=== PATIENT | male | born 1970 | race Caucasian/White ===

== ENCOUNTER 2024-09-02 13:54 | Inpatient (IN) | payer MEDICAID, OTHER ==
[2024-09-02] MEDS ORDERED: MAGNESIUM HYDROXIDE 2,400 MG/30 ML CUP PO PRN (15:10)
[2024-09-02] MEDS ORDERED: LORazepam 1 MG TAB PO PRN ×2 (15:10)
[2024-09-02] MEDS ORDERED: LORazepam 2 MG/ML INJ IM PRN (15:10)
[2024-09-02] MEDS ORDERED: MAG HYDROX/AL HYDROX/SIMETH 355 ML BOTTLE PO PRN (15:10)
[2024-09-02] MEDS ORDERED: IBUPROFEN 600 MG TAB PO PRN (15:10)
[2024-09-02] MEDS ORDERED: ALBUTEROL HFA INHALER INHALATION PRN (17:43)
[2024-09-02] MEDS: ATORVASTATIN 20 MG TAB PO SCH (20:04)
[2024-09-02] MEDS: levETIRAcetam 500 MG TAB PO SCH (20:04)
[2024-09-02] MEDS: QUEtiapine 400 MG TAB PO SCH (20:04)
[2024-09-02] MEDS: GABAPENTIN 300 MG CAP PO SCH (20:04)
[2024-09-02] MEDS: FAMOTIDINE 20 MG TAB PO SCH (20:04)
[2024-09-02] MEDS: RIVAROXABAN 20 MG TAB PO SCH (20:05)
--- NOTE | 2024-09-02 22:54 | P.MDCNMH ---
History of Present Illness H&P Date: 09/02/24 Chief Complaint: medical eval 54 year old male with complext medical problems , VTE on xarelto, COPD on inhalers, hypertension , seizure disorder and alcohol dependance patient does not contribute much during the interview, he seems to be upset and tired. history obtained from reviewing medical records, he was transferred in here from a different facility for mental health admission, he was petitioned involuntarily by police for acute alcohol intoxication and suicidal ideation. He reported ideas of cutting his wrist but he has not acted upon it. he denies any fever, chills, cough, sore throat, chest pain , trouble breathing , nausea , vomiting, abd pain , changes in urinary or bowel habits. again patient does not answer any of my questions review of systems unable to obtain on exam Constitutional: No acute distress, wheelchair bound Lungs: Clear to auscultation Clear to percussion Normal respiratory effort, no accessory muscle use Cardiovascular: Heart regular in rate and rhythm, No murmurs, gallops, or rubs No peripheral edema Abdominal: Soft Nontender, no guarding, rebound or rigidity Abdomen moving with respiration Normoactive bowel sounds Extremities: No digital cyanosis No clubbing left foot metatarsal amputation Psychiatric: awake, alert, does not answer my questions Past Medical History Past Medical History: COPD, Deep Vein Thrombosis (DVT), Hyperlipidemia, Hypertension, Pulmonary Embolus (PE), Seizure Disorder History of Any Multi-Drug Resistant Organisms: None Reported Additional Past Surgical History / Comment(s): L foot amputation of all toes Past Anesthesia/Blood Transfusion Reactions: No Reported Reaction Past Psychological History: Bipolar Smoking Status: Current every day smoker Past Alcohol Use History: Heavy Past Drug Use History: None Reported Medications and Allergies Home Medications Medication Instructions Recorded Confirmed Type Albuterol Inhaler [Ventolin Hfa 2 puff INHALATION RT-Q6H PRN 09/02/24 09/02/24 History Inhaler] Atorvastatin [Lipitor] 20 mg PO DAILY 09/02/24 09/02/24 History Cyclobenzaprine [Flexeril] 5 mg PO BID PRN 09/02/24 09/02/24 History Famotidine [Pepcid] 20 mg PO BID 09/02/24 09/02/24 History Ferrous Sulfate [Feosol] 325 mg PO DAILY 09/02/24 09/02/24 History Folic Acid 1 mg PO DAILY 09/02/24 09/02/24 History Gabapentin [Neurontin] 300 mg PO TID 09/02/24 09/02/24 History Melatonin 10 mg PO HS PRN 09/02/24 09/02/24 History Metoprolol Succinate [Metoprolol 25 mg PO DAILY 09/02/24 09/02/24 History Succinate ER] Pantoprazole [Protonix] 40 mg PO DAILY 09/02/24 09/02/24 History QUEtiapine [SEROquel] 400 mg PO HS 09/02/24 09/02/24 History Rivaroxaban [Xarelto] 20 mg PO HS 09/02/24 09/02/24 History Sertraline [Zoloft] 100 mg PO DAILY 09/02/24 09/02/24 History amLODIPine [Norvasc] 5 mg PO DAILY 09/02/24 09/02/24 History levETIRAcetam [Keppra] 1,000 mg PO BID 09/02/24 09/02/24 History traZODone HCL [Desyrel] 100 mg PO HS 09/02/24 09/02/24 History Allergies Allergy/AdvReac Type Severity Reaction Status Date / Time acetaminophen [From Tylenol] Allergy Unknown Verified 09/02/24 16:02 carbamazepine [From Tegretol] Allergy Unknown Verified 09/02/24 16:02 ibuprofen Allergy Unknown Verified 09/02/24 17:47 Physical Exam Vitals: Vital Signs Temp Pulse Resp BP Pulse Ox 09/02/24 17:42 98.2 F 97 18 98/79 96 Intake and Output 09/02/24 09/02/24 09/02/24 06:59 14:59 22:59 Other: Weight 73.12 kg Cranial Nerve Examination - Cranial Nerves Cranial Nerve II- Optic: Intact Cranial Nerve III- Oculomotor: Intact Cranial Nerve IV- Trochlear: Intact Cranial Nerve V- Trigeminal: Intact Cranial Nerve - Abducens: Intact Cranial Nerve VII- Facial: Intact Cranial Nerve VIII- Auditory: Intact Cranial Nerve IX- Glossopharyngeal: Intact Cranial Nerve X- Vagus: Intact Cranial Nerve XI- Accessory: Intact Cranial Nerve XII- Hypoglossal: Intact Assessment and Plan Assessment: chronic stable medical conditions h/o VTE on xarelto hypertension on amlodipine and metoprolol , controlled blood pressure COPD resume inhalers, PRN duoneb seizure disorder, continue keppra alcohol intoxication monitor for alcohol withdrawal syndrome Benzo per CIWA thiamine daily po seizure precautions no labs available stable from medical stand point thank you for this consultation
[2024-09-03] MEDS ORDERED: SYMBICORT 160-4.5 MCG INHALER INHALATION SCH (08:00)
[2024-09-03] MEDS: NICOTINE 21MG/24HR PATCH TRANSDERM SCH (08:45)
[2024-09-03] MEDS: THIAMINE 100 MG TAB PO SCH (08:46)
[2024-09-03] MEDS: PANTOPRAZOLE 40 MG TABLET PO SCH (08:47)
[2024-09-03] MEDS: FERROUS SULFATE 325 MG TAB PO SCH (08:47)
[2024-09-03] MEDS: amLODIPine 5 MG TAB PO SCH (08:47)
[2024-09-03] MEDS: METOPROLOL SUCCINATE (ER) 25 MG TAB.ER.24H PO SCH (08:47)
[2024-09-03] MEDS: FOLIC ACID 1 MG TAB PO SCH (08:47)
[2024-09-03] MEDS: MULTIVITAMINS, THERA 1 EACH TAB PO SCH (08:48)
[2024-09-03] MEDS: SYMBICORT 160-4.5 MCG INHALER (MHU) INHALATION SCH (09:59)
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
[2024-09-03] MEDS: LORazepam 1 MG TAB PO PRN (21:22)
[2024-09-04] MEDS: CYCLOBENZAPRINE 5 MG TAB PO PRN (08:33)
[2024-09-04] MEDS: LITHIUM CARBONATE 300 MG CAP PO SCH (10:31)
--- NOTE | 2024-09-04 12:55 | P.PN ---
Progress Note - Text Progress Note Date: 09/04/24 Interval History: Patient was seen wandering the hallways and was directable and agreeable to sp liliane with typewriter aligner in the office. He states sleeping and eating okay. Mentions the lab did come by to draw blood for lab work however given his small veins they were unable to obtain any blood for this. EKG however was within normal limits and patient was in agreement with starting lithium given his ongoing suicidal thoughts. He reports suicidal ideations with a plan to hang himself and talked about poor support on the outpatient side. He mentions previous support with his grandmother who is now and his younger brother wants nothing to do with him given his alcohol use. He denied any cravings however patient appears precontemplative in going to rehab. Patient reports history of isolating himself which causes him to feel lonely which then causes him to drink. Patient talked about possibly going to a correction home in [facility] given his substance use and this will be explored further in the upcoming days. At this time patient denies any homicidal ideations, intent or plan. Patient denies any auditory, visual hallucinations and denies any paranoia or delusions. Patient denies any side effects from the medications and has been compliant with meds. Mental Status Exam: General Appearance: Patient appears to be stated age is alert, directable, and cooperative. Patient has short bradshaw hair Behavior: Patient is calmly seated without any agitated behavior. He ambulates via wheelchair Speech: Patient's speech is fluent and nonpressured. Mood/Affect: Mood is "depressed", affect is congruent and constricted. Suicidality/Homicidality: Patient reports suicidal thoughts with a plan but denies having any homicidal ideation intent or plan. Perceptions: Patient denies any visual hallucinations and denies any auditory hallucinations Though content/process: There is no evidence of any delusional thought content and thought process is circumstantial but logical. Memory and concentration: AOX3, grossly intact for the purposes of this session Judgment and insight: Improving mildly Assessment Bipolar disorder, current episode depressed Rule out cyclothymic disorder Alcohol use disorder, severe Nicotine dependence Plan: -Patient continues to meet criteria for inpatient psychiatric admission for symptom stabilization and safety. Patient has signed adult voluntary form and medication consent and was placed in patient's chart. -Medications: Start lithium 300 mg twice daily for suicidal thoughts and continue Seroquel 400 mg at bedtime for bipolar disorder -When necessary Ativan and Haldol for agitation/aggression. -Labs: EKG showed normal sinus rhythm, QTc 453 -NRT -nicotine patch -CIWA protocol with Ativan PRN for ETOH withdrawal. -SW on board for discharge planning. Encouraged the patient to participate in milieu. Anticipate discharge to either halfway or crisis residential sometime next week pending stabilization in suicidal thoughts
[2024-09-05 12:31] LABS: Anisocytosis Slight; Basophils # (A) 0.1 k/uL (0-0.2); Basophils % (A) 1 %; Eosinophils # (A) 0.6 k/uL (0-0.7); Eosinophils % (A) 7 %; HCT 41.9 % (39.0-53.0); HGB 13.1 gm/dL (13.0-17.5); Hypochromasia Moderate; Lymphocytes # (A) 2.2 k/uL (1.0-4.8); Lymphocytes % (A) 27 %; MCH 26.7 pg (25.0-35.0); MCHC 31.2 g/dL (31.0-37.0); MCV 85.7 fL (80.0-100.0); Mean Platelet Volume 7.8; Monocytes # (A) 0.3 k/uL (0-1.0); Monocytes % (A) 4 %; Neutrophils # (A) 4.6 k/uL (1.3-7.7); Neutrophils % (A) 58 %; Platelet Count 284 k/uL (150-450); RBC 4.89 m/uL (4.30-5.90); RDW 17.1 % (11.5-15.5); WBC 7.9 k/uL (3.8-10.6)
[2024-09-05 13:32] LABS: ALT 49 U/L (4-49); AST 30 U/L (17-59); African American GFR (CKD) >90 (>60 ml/min/1.73 sqM); Alkaline Phosphatase 71 U/L (38-126); Anion Gap 15 mmol/L; Bilirubin, Delta 0.1 mg/dL (0.0-0.2); Bilirubin,Unconjugated 0.3 mg/dL (0.0-1.1); Blood Urea Nitrogen 16 mg/dL (9-20); Calcium 10.3 mg/dL (8.4-10.2); Carbon Dioxide 20 mmol/L (22-30); Chloride 104 mmol/L (98-107); Glucose 89 mg/dL (74-99); Non-African American GFR(CKD) >90 (>60 ml/min/1.73 sqM); Potassium 4.3 mmol/L (3.5-5.1); Sodium 139 mmol/L (137-145); Total Bilirubin 0.4 mg/dL (0.2-1.3); Total Protein 8.6 g/dL (6.3-8.2)
--- NOTE | 2024-09-05 14:06 | P.PN ---
Progress Note - Text Progress Note Date: 09/05/24 Interval History: Patient was seen in the halls and was directable and agreeable to speak with kristy lugo in the office. He reports feeling better today. He was able to obtain blood work. He states he realizes he needs to go to the [facility] upon discharge as he had no issues with them in the past. He reports "[place]" related to the medications that is causing issues with swallowing. He reports drinking plenty of fluids yet still has very dry mouth. He reports good sleep otherwise and appetite. He inquired about discharge and is agreeable with an early next week discharge. He is requesting to attend to his ADLs. At this time patient denies any suicidal or homicidal ideations, intent or plan. Patient denies any auditory, visual hallucinations and denies any paranoia or delusions. Patient has been compliant with meds. Mental Status Exam: General Appearance: Patient appears to be stated age is alert, directable, and cooperative. Patient has short bradshaw hair Behavior: Patient is calmly seated without any agitated behavior. Patient appears more irritable than normal today Speech: Patient's speech is fluent and nonpressured. Mood/Affect: Mood is improving mildly, affect is congruent and constricted. Suicidality/Homicidality: Patient denies having any suicidal or homicidal ideation intent or plan. Perceptions: Patient denies any visual hallucinations and denies any auditory hallucinations Though content/process: There is no evidence of any delusional thought content and thought process is linear and goal-directed. Memory and concentration: AOX3, grossly intact for the purposes of this session Judgment and insight: Improving mildly Assessment Bipolar disorder, current episode depressed Rule out cyclothymic disorder Alcohol use disorder, severe Nicotine dependence Plan: -Patient continues to meet criteria for inpatient psychiatric admission for sym ptom stabilization and safety. Patient has signed adult voluntary form and medication consent and was placed in patient's chart. -Medications: Decrease lithium to 150 mg twice daily for suicidal thoughts given adverse effects and continue Seroquel 400 mg at bedtime for bipolar disorder -When necessary Ativan and Haldol for agitation/aggression. -Labs: EKG revealed NSR, QTc 453 -NRT -nicotine patch -CIWA protocol with Ativan PRN for ETOH withdrawal. -SW on board for discharge planning. Encouraged the patient to participate in milieu. Anticipate discharge to group home early next week
[2024-09-05 17:35] LABS: Appearance,Urine Clear (Clear); Bilirubin,Urine Negative (Negative); Blood,Urine Negative (Negative); Color,Urine Colorless; Glucose,Urine (UA) Negative (Negative); Ketones,Urine Negative (Negative); Leukocyte Esterase,Urine Negative (Negative); Nitrite,Urine Negative (Negative); PH, Urine 6.5 (5.0-8.0); Protein,Urine Negative (Negative); Specific Gravity,Urine 1.005 (1.001-1.035); Urobilinogen,Urine <2.0 mg/dL (<2.0)
[2024-09-05] MEDS: LITHIUM CARBONATE 150 MG CAP PO SCH (20:22)
[2024-09-05 21:51] LABS: Chol/HDL Ratio 3.72 Ratio; LDL Cholesterol,Calculated 109.7 mg/dL (0.0-131.0)
--- NOTE | 2024-09-06 11:45 | P.PN ---
Progress Note - Text Progress Note Date: 09/06/24 Interval History: Patient was seen wandering the hallways and was directable and agreeable to sp liliane with grant writer in the office. He reports feeling "tired" today however reports his dry mouth has improved with decreasing lithium. He reports difficulty staying asleep however is not agreeable with titrating Seroquel as he reports lingering sedation throughout the day at this current dose along with worsened sleep at lower doses. He reports trying trazodone and melatonin in the past and did not like the way they made him feel when combined with Seroquel. He inquires about discharge and states he wishes to return to the [facility] in [facility]. Patient was more goal oriented today and less irritable. Discussed with him the option to consolidate his lithium to once a day extended release formulation however patient states he has no issues taking it twice a day. At this time patient denies any suicidal or homicidal ideations, intent or plan. Patient denies any auditory, visual hallucinations and denies any paranoia or delusions. Patient has been compliant with meds. Mental Status Exam: General Appearance: Patient appears to be older than stated age is alert, directable, and cooperative. Patient has short bradshaw hair Behavior: Patient is calmly seated without any agitated behavior. He ambulates via wheelchair Speech: Patient's speech is fluent and nonpressured. Mood/Affect: Mood is improving mildly, affect is congruent and constricted. Suicidality/Homicidality: Patient denies having any suicidal or homicidal ideation intent or plan. Perceptions: Patient denies any visual hallucinations and denies any auditory hallucinations Though content/process: There is no evidence of any delusional thought content and thought process is linear and goal-directed. Memory and concentration: AOX3, grossly intact for the purposes of this session Judgment and insight: Improving mildly Assessment Bipolar disorder, current episode depressed Rule out cyclothymic disorder Alcohol use disorder, severe Nicotine dependence Plan: -Patient continues to meet criteria for inpatient psychiatric admission for symptom stabilization and safety. Patient has signed adult voluntary form and medication consent and was placed in patient's chart. -Medications: Continue lithium 150 mg twice daily for suicidal thoughts, Seroquel 400 mg at bedtime for bipolar disorder -When necessary Ativan and Haldol for agitation/aggression. -Labs: EKG WNL, creatinine and TSH WNL. [place] level ordered for Monday -NRT -nicotine patch -SW on board for discharge planning. Encouraged the patient to participate in milieu. Anticipate discharge to retirement on Monday, will monitor patient's lith ium level in the interim before discharge
--- NOTE | 2024-09-07 12:03 | P.PN ---
Progress Note - Text Interval history: Patient was seen and was directable and agreeable to speak with fiction and nonfiction prose writer. At this time patient denies any suicidal or homicidal ideations intent or plan. Denies any Auditory or visual hallucinations. reports drowsiness because of the medications. Mental status exam: General Appearance: [Patient appears to be older thanstated age, directable, and cooperative.] using a wheelchair Behavior: [No agitated behavior. Patient is calm and directable] Speech: Patient's speech is fluent and nonpressured. Mood/Affect: Mood is "good", affect is congruent and constricted. Suicidality/Homicidality: Patient denies having any suicidal or homicidal ideation intent or plan. Perceptions: Patient denies any auditory or visual hallucinations. Though content/process: [There is no evidence of any delusional thought content and thought process is linear and goal-directed.] Memory and concentration: AOX3, grossly intact for the purposes of this session Judgment and insight: improving mildly Assessment/Plan: Continue with current diagnosis. Patient continues to meet criteria for inpatient psychiatric admission for symptom stabilization and safety.[Patient will be maintained on current psychotropic medication regimen.] Monitor for medication compliance and for any psychotropic medication side effects. Will continue to monitor ongoing response to treatment. Encouraged participation in milieu.
[2024-09-08 07:02] VITALS: RESP 18; TEMP 97
--- NOTE | 2024-09-08 12:57 | P.PN ---
Progress Note - Text Interval history: Patient was seen [wandering the hallways] and was directable and agreeable to speak with mortgage underwriter. he is irritated about not knowing the details of his discharge. At this time patient denies any suicidal or homicidal ideations intent or plan. Denies any Auditory or visual hallucinations. Patient denies any side effects from the medications and has been compliant with meds. Mental status exam: General Appearance: [Patient appears to be stated age is alert, directable, and cooperative.] Behavior: irritable Speech: Patient's speech is fluent and nonpressured. Mood/Affect: Mood is improving mildly, affect is congruent and constricted. Suicidality/Homicidality: Patient denies having any suicidal or homicidal ideation intent or plan. Perceptions: Patient denies any auditory or visual hallucinations. Though content/process: [There is no evidence of any delusional thought content and thought process is linear and goal-directed.] Memory and concentration: AOX3, grossly intact for the purposes of this session Judgment and insight: improving mildly Assessment/Plan: Continue with current diagnosis. Patient continues to meet criteria for inpatient psychiatric admission for symptom stabilization and safety.[Patient will be maintained on current psychotropic medication regimen.] Monitor for medication compliance and for any psychotropic medication side effects. Will continue to monitor ongoing response to treatment. Encouraged participation in milieu.
[2024-09-09 10:42] VITALS: BP 100/65; PULSE 97
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
== END 2024-09-09 13:27 | disposition home or self-care (01) | DRG 753 ==
LOC: 3MHU 17:26
PROVIDERS: ADMIT Psychiatry & Neurology Psychiatry; ATTEND Psychiatry & Neurology Psychiatry
DX: F31.9 Bipolar disorder, unspecified (principal); E78.5 Hyperlipidemia, unspecified; F10.229 Alcohol dependence with intoxication, unspecified; F17.210 Nicotine dependence, cigarettes, uncomplicated; F41.9 Anxiety disorder, unspecified; F34.0 Cyclothymic disorder; F43.10 Post-traumatic stress disorder, unspecified; G40.909 Epilepsy, unspecified, not intractable, without status epilepticus; I10 Essential (primary) hypertension; J44.9 Chronic obstructive pulmonary disease, unspecified; R45.851 Suicidal ideations; Z59.02 Unsheltered homelessness; Z79.01 Long term (current) use of anticoagulants; Z79.899 Other long term (current) drug therapy; Z86.718 Personal history of other venous thrombosis and embolism; Z86.711 Personal history of pulmonary embolism; Z88.6 Allergy status to analgesic agent; Z88.8 Allergy status to other drugs, medicaments and biological substances; Z28.310 Unvaccinated for COVID-19; Z28.21 Immunization not carried out because of patient refusal; Z71.9 Counseling, unspecified
CPT/HCPCS: 80053; 80061; 81003; 82248; 83036; 84443; 85025